=== PATIENT | male | born 1960 | race Caucasian/White ===

== ENCOUNTER 2016-08-11 23:09 | Emergency (ER) | payer OTHER ==
[2016-08-11] MEDS ORDERED: Acetaminophen-Codeine 300-30mg TAB PO STA (23:32)
[2016-08-11] MEDS ORDERED: ACETAMINOPHEN TAB 325 MG TAB PO STA (23:32)
[2016-08-11] MEDS ORDERED: IBUPROFEN 800 MG TAB PO STA (23:32)
[2016-08-11] MEDS ORDERED: diphenhydrAMINE 25 MG CAP PO STA (23:32)
[2016-08-11] MEDS ORDERED: IPRATROPIUM-ALBUTEROL 3 ML NEB INHALATION STA ×2 (23:32→23:40)
[2016-08-11] MEDS ORDERED: ALBUTEROL NEB (CONC) 2.5 MG/0.5 ML INHALATION STA (23:41)
--- NOTE | 2016-08-11 23:55 | ED ---
General Adult HPI - General Chief complaint: Headache Stated complaint: HAYLEE, Hx COPD Time Seen by Provider: 08/11/16 23:26 Source: patient, RN notes reviewed, old records reviewed Mode of arrival: ambulatory Limitations: no limitations - History of Present Illness Initial comments: This is a 56-year-old male ER for evaluation. This patient presents here for evaluation of headache. Patient has headache 4-5 days as well as COPD exacerbation. Patient states he is doing. She was at home with no specific improvement. No fevers cough or congestion. No trauma. Patient denies any nausea or vomiting. Denies any neurological deficit. Patient has had headache before this is mildly worse. - Related Data Home Medications Medication Instructions Recorded Confirmed buPROPion XL [Wellbutrin Xl] 150 mg PO BID@0700,1200 12/31/15 08/11/16 Methocarbamol [Robaxin] 750 mg PO QID PRN 01/25/16 08/11/16 Tiotropium [place] [Spiriva] 18 mcg INHALATION RT-DAILY 01/25/16 08/11/16 traZODone HCL [Desyrel] 50 mg PO HS PRN 01/25/16 08/11/16 Atenolol [Tenormin] 12.5 mg PO DAILY 06/17/16 08/11/16 Pregabalin [Lyrica] 150 mg PO BID 06/17/16 08/11/16 HYDROcodone/APAP 5-325MG [[place] 1 tab PO Q6HR 08/11/16 08/11/16 5-325] Allergies Allergy/AdvReac Type Severity Reaction Status Date / Time No Known Allergies Allergy Verified 08/11/16 23:42 Review of Systems ROS Statement: Those systems with pertinent positive or pertinent negative responses have been documented in the HPI. ROS Other: All systems not noted in ROS Statement are negative. 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 Absent: scleral icterus, conjunctival injection, periorbital swelling ENT exam: Present: normal exam, mucous membranes moist Neck exam: Present: normal inspection. Absent: tenderness, meningismus, lymphadenopathy Respiratory exam: Present: normal lung sounds bilaterally. Absent: respiratory distress, wheezes, rales, rhonchi, stridor Cardiovascular Exam: Present: regular rate, normal rhythm, normal heart sounds. Absent: systolic murmur, diastolic murmur, rubs, gallop, clicks GI/Abdominal exam: Present: soft, normal bowel sounds. Absent: distended, tenderness, guarding, rebound, rigid Extremities exam: Present: normal inspection, full ROM, normal capillary refill. Absent: tenderness, pedal edema, joint swelling, calf tenderness Back exam: Present: normal inspection Neurological exam: Present: alert, oriented X3, CN II-XII intact Psychiatric exam: Present: normal affect, normal mood Skin exam: Present: warm, dry, intact, normal color. Absent: rash Course Vital Signs 08/11/16 08/12/16 08/12/16 23:12 00:05 00:13 Temperature 98.3 F Pulse Rate 68 84 88 Respiratory 20 Rate Blood Pressure 120/67 O2 Sat by Pulse 95 Oximetry 08/12/16 01:51 Temperature Pulse Rate 66 Respiratory 18 Rate Blood Pressure 106/56 O2 Sat by Pulse 98 Oximetry - Reevaluation(s) Reevaluation #1: 08/12/16 00:54 Patient's headache and breathing appears to be improved Reevaluation #2: 08/12/16 02:33 Patient headache is resolved Medical Decision Making - Medical Decision Making 56 male here with 3 day headache shortness of breath cough and congestion. Patient with COPD exacerbation and headache. Symptoms are improved, x-ray and CT are negative. Condition much improved, Patient can be discharged home - Radiology Data Radiology results: report reviewed (Chest x-ray and CT brain are negative for acute disease), image reviewed Disposition Clinical Impression: Migraine, COPD (chronic obstructive pulmonary disease) Disposition: HOME SELF-CARE Condition: Good Instructions: Acute Headache (ED) Referrals: Day Mensah MD [Primary Care Provider] - 1-2 days
--- NOTE | 2016-08-12 00:55 | CT ---
EXAMINATION TYPE: CT brain wo con DATE OF EXAM: 08/12/2016 12:12 AM COMPARISON: 12/31/2015 HISTORY: Anxiety, AMS CT DLP: 1162.80 mGycm Automated exposure control for dose reduction was used. FINDINGS: There is no acute intracranial hemorrhage, mass effect, or midline shift identified. The ventricles and sulci are within normal limits in size. The globes are intact . Mucosal thickening is noted in the ethmoid, maxillary and sphenoid sinuses with chronic sinusitis aydee nges or polyposis changes. IMPRESSION: No acute intracranial hemorrhage, mass effect, or midline shift is seen. No significant interval change. Sinusitis changes.
[2016-08-12 01:53] VITALS: RESP 18
--- NOTE | 2016-08-12 02:23 | XR ---
EXAMINATION TYPE: XR chest 2V DATE OF EXAM: 08/11/2016 11:52 PM COMPARISON: None. HISTORY: COPD and difficulty in breathing TECHNIQUE: Frontal and lateral views of the chest are obtained. FINDINGS: There is suggestion of mild pulmonary vascular congestion. There is no focal air space opacity, pleural effusion, or pneumothorax seen. The cardiac silhouette size is within normal limits. The osseous structures are intact. Mild degenerative changes in the t horacic spine. IMPRESSION: 1. Mild pulmonary vascular congestion. 2. No focal pneumonia.
[2016-08-12 02:56] VITALS: BP 103/58; PULSE 71; TEMP 97
== END 2016-08-12 02:56 | disposition home or self-care (01) ==
LOC: SUPCPDRO 23:09 → EC 23:09
DX: G43.909 Migraine, unspecified, not intractable, without status migrainosus (principal); J44.1 Chronic obstructive pulmonary disease with (acute) exacerbation; Z79.899 Other long term (current) drug therapy; I10 Essential (primary) hypertension; F41.9 Anxiety disorder, unspecified; F32.9 Major depressive disorder, single episode, unspecified; G89.29 Other chronic pain; M54.9 Dorsalgia, unspecified; Z79.891 Long term (current) use of opiate analgesic; F17.200 Nicotine dependence, unspecified, uncomplicated
CPT/HCPCS: 70450; 71020; 94640; 99284

== ENCOUNTER 2016-09-19 13:33 | Emergency (ER) | payer OTHER ==
[2016-09-19 13:46] VITALS: RESP 20
[2016-09-19] MEDS ORDERED: SODIUM CHLORIDE 0.9% 1,000 ML IV STA (15:39)
[2016-09-19] MEDS ORDERED: CLINDAMYCIN 600 MG in DEXTROSE 5% IN WATER 50 ML IVPB STA ×2 (15:40)
[2016-09-19] MEDS ORDERED: DIPH,PERTUS(ACELL)TETVAC-LF 0.5 ML VIAL IM ONE (15:40)
--- NOTE | 2016-09-19 15:48 | ED ---
General Adult HPI - General Chief complaint: Skin/Abscess/Foreign Body Stated complaint: Right Hand Laceration Infection Time Seen by Provider: 09/19/16 15:24 Source: patient Mode of arrival: ambulatory Limitations: no limitations - History of Present Illness Initial comments: Patient is a 56-year-old male RHD presenting with a right hand infection. Patient states he hit his hand on his truck 5-6 days ago and since has been increasing pain and swelling. He has a laceration over the third knuckle of right hand with purulent discharge and surround swelling to distal forearm. Today he noticed the purulent drainage. Patient denies any fever or chills. Patient is unsure last tetanus. - Related Data Home Medications Medication Instructions Recorded Confirmed buPROPion XL [Wellbutrin Xl] 150 mg PO BID@0700,1200 12/31/15 08/11/16 Methocarbamol [Robaxin] 750 mg PO QID PRN 01/25/16 08/11/16 Tiotropium [place] [Spiriva] 18 mcg INHALATION RT-DAILY 01/25/16 08/11/16 traZODone HCL [Desyrel] 50 mg PO HS PRN 01/25/16 08/11/16 Atenolol [Tenormin] 12.5 mg PO DAILY 06/17/16 08/11/16 Pregabalin [Lyrica] 150 mg PO BID 06/17/16 08/11/16 HYDROcodone/APAP 5-325MG [[place] 1 tab PO Q6HR 08/11/16 08/11/16 5-325] Previous Rx's Medication Instructions Recorded Clindamycin [Cleocin] 450 mg PO TID #126 capsule 09/19/16 Allergies Allergy/AdvReac Type Severity Reaction Status Date / Time No Known Allergies Allergy Verified 09/19/16 13:46 Review of Systems ROS Statement: Those systems with pertinent positive or pertinent negative responses have been documented in the HPI. Constitutional: No fever and no chills. HENT: No congestion, no rhinorrhea and no sore throat. Eyes: No discharge and no redness. Respiratory: No cough and no shortness of breath. Cardiovascular: No chest pain and no palpitations. Gastrointestinal: No nausea, no vomiting, no abdominal pain and no diarrhea. Genitourinary: No dysuria and no hematuria. Musculoskeletal: No back pain and no arthralgias. Skin: Positive for laceration, erythema and swelling. Neurological: No dizziness and No headaches. ROS Other: All systems not noted in ROS Statement are negative. 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 No distress. Sleeping upon evaluation Head: Normocephalic and atraumatic. Eyes: Conjunctivae and EOM are normal. Right eye exhibits no discharge. Left eye exhibits no discharge. No scleral icterus. Neck: Normal range of motion. Neck supple. Cardiovascular: Normal rate and regular rhythm. No murmur heard. Pulmonary/Chest: Effort normal and breath sounds normal. No respiratory distress. No wheezes. Abdominal: Soft. No distension. There is no tenderness. There is no rebound and no guarding. Musculoskeletal: Right hand with 2cm laceration over MCP and purulent discharge. Swelling of dorsal aspect of right hand crossing the wrist to the distal forearm. Right hand with swollen digits. Tenderness along the extensor tendons. No distinct pain with passive extension. Distal pulses radial and ulnar artery present. Radian, median, ulnar nerve sensation and motor intact to right hand. Neurological: Patient alert and oriented to person, place, and time. Skin: Skin is warm and dry. Not diaphoretic. Nursing notes and vitals reviewed. Limitations: no limitations Course Vital Signs 09/19/16 09/19/16 13:44 16:01 Temperature 97.8 F 98.7 F Pulse Rate 64 89 Respiratory 20 20 Rate Blood Pressure 119/62 131/68 O2 Sat by Pulse 99 97 Oximetry - Reevaluation(s) Reevaluation #1: Upon evaluation patient informed that he will need to stay in the hospital for IV antibiotics and orthopedic evaluation. Shortly after nurse notified me that patient wants to leave. Patient given risks, benefits and alternatives and he is requesting to leave AGAINST MEDICAL ADVICE. Medical Decision Making - Medical Decision Making Patient's a 56-year-old male presenting with right hand injury concerning for hand infection. Blood work was obtained and patient wanted to leave AMA shortly after. Patient is clinically sober and appears free from distracting injury. He has intact insight, judgment and reason. In my opinion the patient has passed to make decisions. Mr. Colunga presented for right hand infection. I'm concerned this may be a deep hand infection and he understands my concern. Workup so far includes blood draw and physical evaluation. I do not have lab work back at the time of discharge. Hand x-ray shows soft tissue swelling without gas. I have discussed the need for IV antibiotics and orthopedic/hand surgery evaluation. I told the patient that if he leaves and has further worsening of the infection he may possibly loose his hand/fingers, become critically ill, disabled or even . I offered to give the patient pain medication. I offered to admit the patient. I provided the patient with outpatient referral to a hand surgeon. I have offered him clindamycin PO. Though I'm not able to convince him to stay I asked him to return as soon as possible for completion of his services. Mr. Andrea Colunga is unwilling to stay for further testing and additional monitoring. He is refusing further care and leaving AGAINST MEDICAL ADVICE. - Lab Data Result diagrams: 09/19/16 16:00 09/19/16 16:00 Lab Results 09/19/16 09/19/16 09/19/16 Range/Units 16:00 16:00 16:00 WBC 13.2 H (3.8-10.6) k/uL RBC 5.27 (4.30-5.90) m/uL Hgb 16.2 (13.0-17.5) gm/dL Hct 48.3 (39.0-53.0) % MCV 91.5 (80.0-100.0) fL MCH 30.7 (25.0-35.0) pg MCHC 33.5 (31.0-37.0) g/dL RDW 13.7 (11.5-15.5) % Plt Count 313 (150-450) k/uL Neutrophils % 64 % Lymphocytes % 24 % Monocytes % 7 % Eosinophils % 1 % Basophils % 1 % Neutrophils # 8.4 H (1.3-7.7) k/uL Lymphocytes # 3.2 (1.0-4.8) k/uL Monocytes # 0.9 (0-1.0) k/uL Eosinophils # 0.2 (0-0.7) k/uL Basophils # 0.1 (0-0.2) k/uL PT (9.0-12.0) sec INR (<1.1) APTT (22.0-30.0) sec Sodium 142 (137-145) mmol/L Potassium 4.2 (3.5-5.1) mmol/L Chloride 105 (98-107) mmol/L Carbon Dioxide 27 (22-30) mmol/L Anion Gap 10 mmol/L BUN 14 (9-20) mg/dL Creatinine 0.60 L (0.66-1.25) mg/dL Est GFR (MDRD) Af Amer >60 (>60 ml/min/1.73 sqM) Est GFR (MDRD) Non-Af >60 (>60 ml/min/1.73 sqM) Glucose 128 H (74-99) mg/dL Plasma Lactic Acid Javon 1.1 (0.7-2.0) mmol/L Calcium 8.9 (8.4-10.2) mg/dL 09/19/16 Range/Units 16:00 WBC (3.8-10.6) k/uL RBC (4.30-5.90) m/uL Hgb (13.0-17.5) gm/dL Hct (39.0-53.0) % MCV (80.0-100.0) fL MCH (25.0-35.0) pg MCHC (31.0-37.0) g/dL RDW (11.5-15.5) % Plt Count (150-450) k/uL Neutrophils % % Lymphocytes % % Monocytes % % Eosinophils % % Basophils % % Neutrophils # (1.3-7.7) k/uL Lymphocytes # (1.0-4.8) k/uL Monocytes # (0-1.0) k/uL Eosinophils # (0-0.7) k/uL Basophils # (0-0.2) k/uL PT 10.1 (9.0-12.0) sec INR 1.0 (<1.1) APTT 25.4 (22.0-30.0) sec Sodium (137-145) mmol/L Potassium (3.5-5.1) mmol/L Chloride (98-107) mmol/L Carbon Dioxide (22-30) mmol/L Anion Gap mmol/L BUN (9-20) mg/dL Creatinine (0.66-1.25) mg/dL Est GFR (MDRD) Af Amer (>60 ml/min/1.73 sqM) Est GFR (MDRD) Non-Af (>60 ml/min/1.73 sqM) Glucose (74-99) mg/dL Plasma Lactic Acid Javon (0.7-2.0) mmol/L Calcium (8.4-10.2) mg/dL Disposition Clinical Impression: Infected hand Disposition: Left Against Medical Advice Instructions: Tenosynovitis (ED), Wound Infection (ED) Prescriptions: Clindamycin [Cleocin] 450 mg PO TID #126 capsule Referrals: Nonstaff,Physician [Primary Care Provider] - 1-2 days Chase Erickson MD [STAFF PHYSICIAN] - 1-2 days Garcia Rodríguez DO [Doctor of Osteopathic Medicine] - 1-2 days
--- NOTE | 2016-09-19 15:59 | XR ---
EXAMINATION TYPE: XR hand complete RT DATE OF EXAM: 09/19/2016 3:55 PM COMPARISON: NONE HISTORY: Laceration TECHNIQUE: 3 views FINDINGS: There is narrowing and spurring at the second and third MP joints. There is soft tissue swe lling on the dorsum of the hand. I see no fracture nor dislocation. There is no sign of a foreign bod y. There are small cystic changes in the scaphoid and capitate. IMPRESSION: Osteoarthritic changes. Soft tissue swelling. No fracture.
[2016-09-19 16:02] VITALS: BP 131/68; PULSE 89; TEMP 98.7
[2016-09-19 16:21] LABS: Basophils # (A) 0.1 k/uL (0-0.2); Basophils % (A) 1 %; CH 30.7; CHCM 33.7; Eosinophils # (A) 0.2 k/uL (0-0.7); Eosinophils % (A) 1 %; HCT 48.3 % (39.0-53.0); HDW 2.39; HGB 16.2 gm/dL (13.0-17.5); Luc # (Auto) 0.48; Luc % (Auto) 4; Lymphocytes # (A) 3.2 k/uL (1.0-4.8); Lymphocytes % (A) 24 %; MCH 30.7 pg (25.0-35.0); MCHC 33.5 g/dL (31.0-37.0); MCV 91.5 fL (80.0-100.0); Mean Platelet Volume 6.4; Monocytes # (A) 0.9 k/uL (0-1.0); Monocytes % (A) 7 %; Neutrophils # (A) 8.4 k/uL (1.3-7.7); Neutrophils % (A) 64 %; RBC 5.27 m/uL (4.30-5.90); RDW 13.7 % (11.5-15.5); WBC 13.2 k/uL (3.8-10.6); WBC (Perox) 13.66
[2016-09-19 16:30] LABS: Partial Thromboplastin Time 25.4 sec (22.0-30.0); Prothrombin Time 10.1 sec (9.0-12.0)
[2016-09-19 16:32] LABS: Anion Gap 10 mmol/L; Blood Urea Nitrogen 14 mg/dL (9-20); Calcium 8.9 mg/dL (8.4-10.2); Carbon Dioxide 27 mmol/L (22-30); Chloride 105 mmol/L (98-107); Glucose 128 mg/dL (74-99); Non-African American GFR(MDRD) >60 (>60 ml/min/1.73 sqM); Potassium 4.2 mmol/L (3.5-5.1); Sodium 142 mmol/L (137-145)
== END 2016-09-19 16:29 | disposition left against medical advice (07) ==
LOC: EC 13:33
DX: L08.9 Local infection of the skin and subcutaneous tissue, unspecified (principal); Z53.21 Procedure and treatment not carried out due to patient leaving prior to being seen by health care provider; I10 Essential (primary) hypertension; G89.29 Other chronic pain; M54.9 Dorsalgia, unspecified; F41.9 Anxiety disorder, unspecified; F32.9 Major depressive disorder, single episode, unspecified; F17.210 Nicotine dependence, cigarettes, uncomplicated; Z79.899 Other long term (current) drug therapy
CPT/HCPCS: 36415; 80048; 83605; 85025; 85610; 85730; 87040; 99283

== ENCOUNTER → 2016-11-28 | Outpatient (CLI) | payer OTHER ==
[2016-11-28 12:15] LABS: Non-African American GFR(MDRD) >60 (>60 ml/min/1.73 sqM)
--- NOTE | 2016-11-28 18:34 | MR ---
EXAMINATION TYPE: MR lumbar spine wo/w con DATE OF EXAM: 11/28/2016 1:12 PM COMPARISON: 04/30/2015 HISTORY: LBP, RLE radic, prior surgery x 2 2014 CONTRAST: 20 mL intravenous MultiHance. TECHNIQUE: Multiplanar, multisequence images of the lumbar spine were acquired. FINDINGS: L5-S1: There is increased signal within the disc space. Minimal disc bulge is present with anterior t hecal sac contact. No spinal canal stenosis is present. Facet hypertrophy is present. There appears to be a right laminectomy. There is a fluid type signal within the right laminectomy extending toward s the spinous process measuring approximately 2.3 x 1.0 cm. Meningocele most likely within the differ ential. Severe bilateral foraminal stenosis is present. L4-L5: There is a large disc bulge. This is in the central and right paracentral regions. This is cau sing moderate narrowing of the right foramen. No spinal canal stenosis. Mild left foraminal stenosi s is present. . L3-L4: Broad-based disc bulging is anterior thecal sac contact. Facet hypertrophy is present greater on the left posterior lateral thecal sac compression. No AP spinal canal stenosis present. There is m oderate left foraminal stenosis. Mild right foraminal stenosis present. L2-L3: Subligamentous disc extension may be present centrally. There is anterior thecal sac flattenin g from residual disc bulge. Mild left facet hypertrophy is present. Mild right facet hypertrophy is p resent. Neural foramen are patent. L1-L2: Mild disc bulging is anterior thecal sac contact. No AP spinal canal stenosis present. No fora hanna stenosis. Neural foramen are patent.. T12-L1: No significant disc bulge or disc herniation. No spinal canal stenosis. No foraminal stenos is. . No abnormal enhancement. IMPRESSION: 1. 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 2. Disc bulging L4-5 and to lesser degree L3-4 and L2-3 with anterior thecal sac compression. This is greatest at the L4-5 level. 3. Severe bilateral foraminal stenosis due to disc bulging and facet hypertrophy at L5-S1
== END | disposition home or self-care (01) ==
LOC: RADMRIMAIN 11:47
PROVIDERS: ATTEND Psychiatry & Neurology Neurology
DX: M48.06 Spinal stenosis, lumbar region (principal); M54.16 Radiculopathy, lumbar region
CPT/HCPCS: 82565; 72158; A9577

== ENCOUNTER 2017-03-26 00:10 | Observation (INO) | payer OTHER ==
[2017-03-26] MEDS ORDERED: IPRATROPIUM-ALBUTEROL 3 ML NEB INHALATION STA (00:33)
--- NOTE | 2017-03-26 01:16 | XR ---
EXAM: XR Chest, 2 Views CLINICAL HISTORY: Reason: cough TECHNIQUE: Frontal and lateral views of the chest. COMPARISON: 08/11/2016 FINDINGS: Lungs: Mild pulmonary vascular congestion/pulmonary interstitial edema is suggested, interval worsening since prior study. Retrocardiac infiltrates and/or atelectasis is seen. Pleural space: Unremarkable. No pneumothorax. Heart: Unremarkable. No cardiomegaly. Mediastinum: Unremarkable. Bones/joints: Unchanged. IMPRESSION: 1. Mild pulmonary vascular congestion/pulmonary interstitial edema is suggested, interval worsening since prior study. 2. Retrocardiac infiltrates and/or atelectasis is seen. Clinical correlation recommended.
[2017-03-26 01:42] LABS: Basophils # (A) 0.1 k/uL (0-0.2); Basophils % (A) 1 %; CH 31.7; CHCM 33.9; Eosinophils # (A) 0.2 k/uL (0-0.7); Eosinophils % (A) 1 %; HCT 51.1 % (39.0-53.0); HGB 17.1 gm/dL (13.0-17.5); Luc # (Auto) 0.38; Luc % (Auto) 2; Lymphocytes # (A) 3.8 k/uL (1.0-4.8); Lymphocytes % (A) 23 %; MCH 31.5 pg (25.0-35.0); MCHC 33.4 g/dL (31.0-37.0); MCV 94.2 fL (80.0-100.0); Mean Platelet Volume 7.5; Monocytes % (A) 6 %; Neutrophils % (A) 67 %; RBC 5.42 m/uL (4.30-5.90); RDW 14.7 % (11.5-15.5); WBC 16.5 k/uL (3.8-10.6); WBC (Perox) 15.68
[2017-03-26 01:51] LABS: Partial Thromboplastin Time 23.9 sec (22.0-30.0); Prothrombin Time 10.3 sec (9.0-12.0)
[2017-03-26] MEDS ORDERED: methylPREDNISolone SOD SUCCI 125 MG/2 ML VIAL IV STA (01:57)
[2017-03-26] MEDS ORDERED: KETOROLAC 30 MG/ML 1 ML VIAL IVP STA (01:57)
[2017-03-26] MEDS ORDERED: PROMETHAZ-COD 6.25-10 MG/5 ML 5 ML CUP PO STA (01:58)
[2017-03-26 02:00] LABS: Anion Gap 11 mmol/L; Blood Urea Nitrogen 14 mg/dL (9-20); Calcium 9.3 mg/dL (8.4-10.2); Carbon Dioxide 25 mmol/L (22-30); Chloride 107 mmol/L (98-107); Glucose 114 mg/dL (74-99); Non-African American GFR(MDRD) >60 (>60 ml/min/1.73 sqM); Sodium 143 mmol/L (137-145)
--- NOTE | 2017-03-26 02:07 | ED ---
General Adult HPI - General Chief complaint: Upper Respiratory Infection Stated complaint: HAYLEE Time Seen by Provider: 03/26/17 00:26 Source: patient, RN notes reviewed Mode of arrival: ambulatory Limitations: no limitations - History of Present Illness Initial comments: this a 56-year-old male presents emergency Department chief complaint of cough/ congestion and shortness breath. Patient states that he has been sick over the last month. Patient states that he was given a course of Biaxin steroids) primary care physician they states that it returned after stopping. Patient states that his cough is productive any is a large amount of sinus congestion. Patient states he is had increased wheezing, raspy cough. Patient states that he has a history of COPD and continues to smoke. Denies any chest pain. He has no cardiac history. Patient states that he's had fevers at home along with chills. - Related Data Home Medications Medication Instructions Recorded Confirmed buPROPion XL [Wellbutrin Xl] 150 mg PO BID@0700,1200 12/31/15 08/11/16 Methocarbamol [Robaxin] 750 mg PO QID PRN 01/25/16 08/11/16 Tiotropium [place] [Spiriva] 18 mcg INHALATION RT-DAILY 01/25/16 08/11/16 traZODone HCL [Desyrel] 50 mg PO HS PRN 01/25/16 08/11/16 Atenolol [Tenormin] 12.5 mg PO DAILY 06/17/16 08/11/16 Pregabalin [Lyrica] 150 mg PO BID 06/17/16 08/11/16 HYDROcodone/APAP 5-325MG [[place] 1 tab PO Q6HR 08/11/16 08/11/16 5-325] Previous Rx's Medication Instructions Recorded Clindamycin [Cleocin] 450 mg PO TID #126 capsule 09/19/16 Allergies Allergy/AdvReac Type Severity Reaction Status Date / Time No Known Allergies Allergy Verified 09/19/16 13:46 Review of Systems ROS Statement: Those systems with pertinent positive or pertinent negative responses have been documented in the HPI. ROS Other: All systems not noted in ROS Statement are negative. 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 Absent: scleral icterus, conjunctival injection, periorbital swelling ENT exam: Present: mucous membranes moist, TM's normal bilaterally, normal external ear exam. Absent: normal exam, normal oropharynx (PND) Neck exam: Present: normal inspection, full ROM. Absent: tenderness, meningismus, lymphadenopathy Respiratory exam: Present: wheezes, rhonchi. Absent: normal lung sounds bilaterally, respiratory distress, rales, stridor Cardiovascular Exam: Present: regular rate, normal rhythm, normal heart sounds. Absent: systolic murmur, diastolic murmur, rubs, gallop, clicks Skin exam: Present: warm, dry, intact, normal color. Absent: rash Course Vital Signs 03/26/17 03/26/17 03/26/17 00:13 00:21 00:55 Temperature 97.7 F Pulse Rate 73 72 Respiratory 18 22 Rate Blood Pressure 133/80 O2 Sat by Pulse 95 Oximetry 03/26/17 03/26/17 01:11 01:40 Temperature Pulse Rate 84 77 Respiratory 18 Rate Blood Pressure 99/50 O2 Sat by Pulse 99 Oximetry EKG Findings - EKG Comments: EKG Findings:: EKG performed at 2:09 sinus rhythm with PAC rate of 76 NJ interval 156 QRS duration 106 QTC is QTC 414/465 Medical Decision Making - Lab Data Result diagrams: 03/26/17 01:37 03/26/17 01:37 Lab Results 03/26/17 03/26/17 03/26/17 Range/Units 01:37 01:37 01:37 WBC 16.5 H (3.8-10.6) k/uL RBC 5.42 (4.30-5.90) m/uL Hgb 17.1 (13.0-17.5) gm/dL Hct 51.1 (39.0-53.0) % MCV 94.2 (80.0-100.0) fL MCH 31.5 (25.0-35.0) pg MCHC 33.4 (31.0-37.0) g/dL RDW 14.7 (11.5-15.5) % Plt Count 334 (150-450) k/uL Neutrophils % 67 % Lymphocytes % 23 % Monocytes % 6 % Eosinophils % 1 % Basophils % 1 % Neutrophils # 11.0 H (1.3-7.7) k/uL Lymphocytes # 3.8 (1.0-4.8) k/uL Monocytes # 1.0 (0-1.0) k/uL Eosinophils # 0.2 (0-0.7) k/uL Basophils # 0.1 (0-0.2) k/uL PT (9.0-12.0) sec INR (<1.2) APTT (22.0-30.0) sec Sodium 143 (137-145) mmol/L Potassium 4.0 (3.5-5.1) mmol/L Chloride 107 (98-107) mmol/L Carbon Dioxide 25 (22-30) mmol/L Anion Gap 11 mmol/L BUN 14 (9-20) mg/dL Creatinine 0.60 L (0.66-1.25) mg/dL Est GFR (MDRD) Af Amer >60 (>60 ml/min/1.73 sqM) Est GFR (MDRD) Non-Af >60 (>60 ml/min/1.73 sqM) Glucose 114 H (74-99) mg/dL Calcium 9.3 (8.4-10.2) mg/dL Troponin I (0.000-0.034) ng/mL NT-Pro-B Natriuret Pep 150 pg/mL 17 03/26/17 Range/Units 01:37 01:37 WBC (3.8-10.6) k/uL RBC (4.30-5.90) m/uL Hgb (13.0-17.5) gm/dL Hct (39.0-53.0) % MCV (80.0-100.0) fL MCH (25.0-35.0) pg MCHC (31.0-37.0) g/dL RDW (11.5-15.5) % Plt Count (150-450) k/uL Neutrophils % % Lymphocytes % % Monocytes % % Eosinophils % % Basophils % % Neutrophils # (1.3-7.7) k/uL Lymphocytes # (1.0-4.8) k/uL Monocytes # (0-1.0) k/uL Eosinophils # (0-0.7) k/uL Basophils # (0-0.2) k/uL PT 10.3 (9.0-12.0) sec INR 1.0 (<1.2) APTT 23.9 (22.0-30.0) sec Sodium (137-145) mmol/L Potassium (3.5-5.1) mmol/L Chloride (98-107) mmol/L Carbon Dioxide (22-30) mmol/L Anion Gap mmol/L BUN (9-20) mg/dL Creatinine (0.66-1.25) mg/dL Est GFR (MDRD) Af Amer (>60 ml/min/1.73 sqM) Est GFR (MDRD) Non-Af (>60 ml/min/1.73 sqM) Glucose (74-99) mg/dL Calcium (8.4-10.2) mg/dL Troponin I <0.012 (0.000-0.034) ng/mL NT-Pro-B Natriuret Pep pg/mL Disposition Clinical Impression: COPD exacerbation, Pneumonia Disposition: ADMITTED IP TO THIS HOSP Condition: Fair Referrals: Nonstaff,Physician [Primary Care Provider] - 1-2 days
[2017-03-26] MEDS ORDERED: LEVOFLOXACIN 750MG-D5W PMX 750 MG in DEXTROSE/WATER 1 150ML.BAG IVPB STA (02:48)
[2017-03-26] MEDS ORDERED: METHOCARBAMOL 750 MG TAB PO PRN (02:50)
[2017-03-26] MEDS ORDERED: traZODone HCL 50 MG TAB PO PRN (02:50)
[2017-03-26 03:23] VITALS: RESP 16
[2017-03-26] MEDS: HYDROcodone/APAP 5-325MG 1 EACH TAB PO SCH ×2 (04:43→11:19)
[2017-03-26] MEDS: methylPREDNISolone SOD SUCCI 125 MG/2 ML VIAL IV SCH ×2 (05:50→13:34)
[2017-03-26] MEDS: IPRATROPIUM-ALBUTEROL 3 ML NEB INHALATION SCH ×3 (07:30→16:49)
[2017-03-26 07:42] LABS: Glucose,Whole Blood 209 mg/dL (75-99)
[2017-03-26] MEDS: INSULIN LISPRO (humaLOG) 300 UNIT/3 ML VIAL SQ SCH ×2 (07:55→13:35)
[2017-03-26] MEDS: buPROPion XL 150 MG TAB.ER.24H PO SCH ×2 (07:55→13:36)
[2017-03-26] MEDS ORDERED: TIOTROPIUM 18 MCG/PUFF INHALER INHALATION SCH (08:00)
[2017-03-26] MEDS ORDERED: CHLORPHEN-HYDROcod 8-10mg/5ml 5 ML ORAL.SYRG PO SCH (09:00)
[2017-03-26] MEDS ORDERED: PREGABALIN 75 MG CAP PO SCH (09:00)
[2017-03-26] MEDS ORDERED: ATENOLOL 12.5 MG TAB PO SCH (09:00)
[2017-03-26] MEDS ORDERED: ALPRAZolam 0.25 MG TAB PO PRN ×2 (10:57→15:53)
[2017-03-26] MEDS ORDERED: NICOTINE 21MG/24HR PATCH TRANSDERM SCH (11:00)
[2017-03-26 11:49] LABS: Hemoglobin A1C 5.4 % (4.2-6.1)
[2017-03-26 12:51] LABS: Glucose,Whole Blood 271 mg/dL (75-99)
[2017-03-26] MEDS ORDERED: INSULIN LISPRO (humaLOG) 300 UNIT/3 ML VIAL SQ ONE (13:32)
[2017-03-26 14:32] VITALS: BP 118/64; PULSE 89; TEMP 97
[2017-03-26] MEDS ORDERED: AZITHROMYCIN 1,200 MG/30 ML BOTTLE PO SCH (15:00)
--- NOTE | 2017-03-26 15:13 | P.HPIM ---
History of Present Illness H&P Date: 03/26/17 (dc summ.as well) This is a 56-year-old gentleman with the ongoing tobacco use smokes about 1-2 packs of cigarettes daily currently maintained on albuterol and Spiriva by his primary care physician comes in to the hospital with progressive worsening in difficulty breathing or the last 3-4 weeks. Patient apparently was treated with steroids and antibiotic about 8 weeks ago for sinusitis. The patient states that his breathing has progressively gotten worse over the last 2 days hence came to the hospital for ongoing evaluation. A chest X in the emergency room showed retrocardiac airspace disease Patient's worsening difficulty breathing associated with cough which is productive of yellowish sputum Patient states that he has had pulmonary function tests in the past and has a diagnosis COPD Patient was given breathing treatments and the steroids with Levaquin patient is improved significant At this time patient apparently snuck out of the building to smoke a cigarette this morning states to be doing better no fevers chills nausea vomiting or diarrhea. 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, headaches History of Any Multi-Drug Resistant Organisms: None Reported Past Surgical History: Back Surgery Past Anesthesia/Blood Transfusion Reactions: No Reported Reaction Past Psychological History: Anxiety, Depression Smoking Status: Current every day smoker Past Alcohol Use History: None Reported Past Drug Use History: None Reported Medications and Allergies Home Medications Medication Instructions Recorded Confirmed Type buPROPion XL [Wellbutrin XL] 150 mg PO BID 12/31/15 03/26/17 History Methocarbamol [Robaxin] 750 mg PO QID PRN 01/25/16 03/26/17 History Tiotropium [place] [Spiriva] 18 mcg INHALATION RT-DAILY 01/25/16 03/26/17 History traZODone HCL [Desyrel] 50 mg PO HS PRN 01/25/16 03/26/17 History Pregabalin [Lyrica] 150 mg PO TID 06/17/16 03/26/17 History Atenolol [Tenormin] 25 mg PO DAILY 03/26/17 03/26/17 History Allergies Allergy/AdvReac Type Severity Reaction Status Date / Time No Known Allergies Allergy Verified 03/26/17 11:10 Physical Exam Vitals: Vital Signs Temp Pulse Pulse Resp BP BP Pulse Ox 03/26/17 14:32 97.0 F L 89 16 118/64 95 03/26/17 11:39 86 03/26/17 11:31 82 03/26/17 07:45 80 03/26/17 07:33 74 93 L 03/26/17 07:00 97.9 F 71 16 109/62 93 L 03/26/17 03:58 97.3 F L 69 16 115/63 93 L 03/26/17 03:22 98.4 F 87 16 128/78 99 03/26/17 01:40 77 18 99/50 99 03/26/17 01:11 84 03/26/17 00:55 72 03/26/17 00:21 22 03/26/17 00:13 97.7 F 73 18 133/80 95 Intake and Output 03/26/17 03/26/17 03/26/17 06:59 14:59 22:59 Other: # Voids 0 2 # Bowel Movements 0 Weight 102.965 kg Physical exam Gen. appearance oriented 3 in no distress Neck is supple no JVD Lungs diminished breath sounds barrel-shaped chest no wheezing appreciated air movement is noted. g Heart S1-S2 heard regular rate and rhythm no murmurs appreciated Abdomen is soft nontender no organomegaly bowel sounds are intact Neurologically cranial nerves II-12 grossly intact no focal motor or sensory deficits noted Skin no abnormalities appreciated Results CBC & Chem 7: 03/26/17 01:37 03/26/17 01:37 Labs: Abnormal Lab Results - Last 24 Hours (Table) 03/26/17 03/26/17 03/26/17 Range/Units 01:37 01:37 06:56 WBC 16.5 H (3.8-10.6) k/uL Neutrophils # 11.0 H (1.3-7.7) k/uL Creatinine 0.60 L (0.66-1.25) mg/dL Glucose 114 H (74-99) mg/dL POC Glucose (mg/dL) 209 H (75-99) mg/dL 03/26/17 Range/Units 12:48 WBC (3.8-10.6) k/uL Neutrophils # (1.3-7.7) k/uL Creatinine (0.66-1.25) mg/dL Glucose (74-99) mg/dL POC Glucose (mg/dL) 271 H (75-99) mg/dL Thrombosis Risk Factor Assmnt - Choose All That Apply Any of the Below Risk Factors Present?: Yes Each Factor Represents 1 point: Abnormal pulmonary function (COPD), Age 41-60 years, Obesity (BMI >25), Serious lung disease incl. pneumonia (< 1month) Thrombosis Risk Factor Assessment Total Risk Factor Score: 4 Thrombosis Risk Factor Assessment Level: Moderate Risk Assessment and Plan Plan: #1 acute exacerbation of COPD mild to moderate #2 ongoing tobacco use #3 essential hypertension. #4 chronic back pain #5 right posterior pneumonia that is acute causing #1 #6 dyslipidemia Plan Patient will be discharged on 10 days of Levaquin. Patient will be given a prednisone taper as well. Smoking cessation is discussed Patient is to continue Spiriva and albuterol with spacer Patient is referred to a batch mixer operator on outpatient basis as well
[2017-03-26] MEDS ORDERED: methylPREDNISolone SOD SUCCI 40 MG/ML 1 ML VIAL IV SCH (16:00)
[2017-03-27] MEDS ORDERED: LEVOFLOXACIN 750MG-D5W PMX 750 MG in DEXTROSE/WATER 1 150ML.BAG IVPB SCH (05:00)
== END 2017-03-26 16:44 | disposition home or self-care (01) ==
LOC: EC 00:10 → INTOOBSV 02:49 → 4MS4W 02:49
PROVIDERS: ADMIT Hospitalist; ATTEND Hospitalist
DX: J44.0 Chronic obstructive pulmonary disease with (acute) lower respiratory infection (principal); J18.9 Pneumonia, unspecified organism; J44.1 Chronic obstructive pulmonary disease with (acute) exacerbation; F17.210 Nicotine dependence, cigarettes, uncomplicated; E78.5 Hyperlipidemia, unspecified; I10 Essential (primary) hypertension; G89.29 Other chronic pain; M54.9 Dorsalgia, unspecified; F32.9 Major depressive disorder, single episode, unspecified; Z79.891 Long term (current) use of opiate analgesic; Z79.899 Other long term (current) drug therapy; E66.9 Obesity, unspecified; Z68.33 Body mass index [BMI] 33.0-33.9, adult
CPT/HCPCS: 96376; 96366; 96365; 96375; 99284; 36415; 94640 ×2; 94760; 93005; 83880; 80048; 83036; 84484; 85025; 85610; 85730; 87040; 71020; G0378; J2920; J2930; J0696; J1885; J1956

== ENCOUNTER 2017-09-19 17:45 | Emergency (ER) | payer MEDICARE, OTHER ==
[2017-09-19 17:49] VITALS: BP 127/87; PULSE 79; RESP 20; TEMP 99
[2017-09-19] MEDS ORDERED: KETOROLAC 60 MG/2 ML VIAL IM STA (18:10)
--- NOTE | 2017-09-19 18:13 | ED ---
Back Pain [facility] - General Chief Complaint: Back Pain/Injury Stated Complaint: Back pain Time Seen by Provider: 09/19/17 17:54 Source: patient Limitations: no limitations - History of Present Illness Initial Comments: 57-year-old male patient presents to the emergency department today for complaints of lower back pain. Patient does have a history of chronic low back pain and has had back surgery before. States that generally he has pain on the right lower back with radiation down the right leg. States that he feels that the pain is really more towards the left now. He states that he had been taking Lyrica for a long time, he states he was cut off this medication 2 weeks ago due to insurance issues. He states that his pain is been worsening over the last 2 weeks. He denies any abnormal numbness or tingling. Denies any loss of bowel or bladder control. Denies any saddle anesthesia. He is able to and bili however states is difficult due to the pain. He doesn't follow with a painter and grader cork and takes [place] Johns 10/325 at home. He states that these medications aren't helping. Patient denies any recent rash, fever, chills , shortness breath, chest pain, abdominal pain, nausea, vomiting, diarrhea, constipation, dizziness, weakness, hematuria, dysuria, urinary urgency, urinary frequency, headache, visual changes, or any other complaints. - Related Data Home Medications Medication Instructions Recorded Confirmed buPROPion XL [Wellbutrin XL] 150 mg PO BID 12/31/15 03/26/17 Methocarbamol [Robaxin] 750 mg PO QID PRN 01/25/16 03/26/17 Tiotropium [place] [Spiriva] 18 mcg INHALATION RT-DAILY 01/25/16 03/26/17 traZODone HCL [Desyrel] 50 mg PO HS PRN 01/25/16 03/26/17 Pregabalin [Lyrica] 150 mg PO TID 06/17/16 03/26/17 Atenolol [Tenormin] 25 mg PO DAILY 03/26/17 03/26/17 Previous Rx's Medication Instructions Recorded Albuterol Inhaler [Ventolin Hfa 1 - 2 puff INHALATION Q6HR PRN #1 03/26/17 Inhaler] inhaler Levofloxacin [Levaquin] 500 mg PO DAILY #10 tab 03/26/17 predniSONE 0 mg PO DIRECTED #30 tab 03/26/17 Ketorolac [Toradol] 10 mg PO Q6HR #20 tab 09/19/17 Allergies Allergy/AdvReac Type Severity Reaction Status Date / Time No Known Allergies Allergy Verified 09/19/17 17:49 Review of Systems ROS Statement: Those systems with pertinent positive or pertinent negative responses have been documented in the HPI. ROS Other: All systems not noted in ROS Statement are negative. 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 Vital signs upon presentation are temperature 99.0F, pulse 79, respirations 20, blood pressure 127/87, pulse ox 99% on room air.) Eye exam: Present: normal appearance, PERRL, EOMI. Absent: scleral icterus, conjunctival injection, periorbital swelling ENT exam: Present: normal exam, normal oropharynx, mucous membranes moist Neck exam: Present: normal inspection. Absent: tenderness, meningismus, lymphadenopathy Respiratory exam: Present: normal lung sounds bilaterally. Absent: respiratory distress, wheezes, rales, rhonchi, stridor Cardiovascular Exam: Present: regular rate, normal rhythm, normal heart sounds. Absent: systolic murmur, diastolic murmur, rubs, gallop, clicks GI/Abdominal exam: Present: soft, normal bowel sounds. Absent: distended, tenderness, guarding, rebound, rigid Extremities exam: Present: normal inspection, full ROM, normal capillary refill , other (Lower extremities are pink, warm, and dry. Cap refills less than 3 seconds. Posttibial pulses are 2+ and equal bilaterally. The patient exhibits 4/5 strength in the left lower extremity, 3/5 strength in the right lower extremities.). Absent: tenderness, pedal edema, joint swelling, calf tenderness Back exam: Present: normal inspection. Absent: rash noted Neurological exam: Present: alert, oriented X3, CN II-XII intact Psychiatric exam: Present: normal affect, normal mood Skin exam: Present: warm, dry, intact, normal color. Absent: rash Course Vital Signs 09/19/17 17:47 Temperature 99.0 F Pulse Rate 79 Respiratory 20 Rate Blood Pressure 127/87 O2 Sat by Pulse 99 Oximetry Medical Decision Making - Medical Decision Making 57-year-old male patient presents to the emergency department today for complaints of lower back pain. Patient does have chronic low back pain and does follow with a painter and grader cork. Physical examination is relatively unremarkable. He is neurologically intact. His neurovascular status is intact. Patient does take [place] Johns at home currently. States he has taken Toradol in the past with good results. He denies any history of kidney malfunction and. Labs reviewed from March 2017, kidney function was normal. We will give him an injection of Toradol here in the department. He'll be given a prescription for a 5 day course of Toradol. He is instructed to follow- up with his painter and grader cork for further evaluation and possibly further testing. Return parameters were discussed in detail. He is instructed to return here immediately for any other new, worsening, or concerning symptoms. He verbalizes understanding and agrees this plan. Disposition Clinical Impression: Chronic low back pain Disposition: HOME SELF-CARE Condition: Good Instructions: Chronic Back Pain (ED) Additional Instructions: Continue home pain medications. Follow-up with her painter and grader cork for further evaluation and testing. Return here immediately for any new, worsening, or concerning symptoms. Prescriptions: Ketorolac [Toradol] 10 mg PO Q6HR #20 tab Referrals: Nonstaff,Physician [Primary Care Provider] - 1-2 days Yassine Maloney MD [STAFF PHYSICIAN] - 1-2 days Time of Disposition: 18:13
== END 2017-09-19 18:51 | disposition home or self-care (01) ==
LOC: EC 17:45
DX: M54.5 Low back pain (principal); G89.29 Other chronic pain; F41.9 Anxiety disorder, unspecified; J44.9 Chronic obstructive pulmonary disease, unspecified; I10 Essential (primary) hypertension; F32.9 Major depressive disorder, single episode, unspecified; F17.200 Nicotine dependence, unspecified, uncomplicated; Z98.890 Other specified postprocedural states; Z79.51 Long term (current) use of inhaled steroids; Z79.899 Other long term (current) drug therapy
CPT/HCPCS: 99283; 96372; J1885